=== PATIENT | female | born 1980 | race Caucasian/White ===

== ENCOUNTER 2017-04-04 06:00 | Inpatient (IN) | payer OTHER ==
[2017-04-04] MEDS ORDERED: TERBUTALINE SULFATE 1 MG/ML VIAL IV PRN (07:04)
[2017-04-04] MEDS ORDERED: LR 1,000 ML IV PRN (07:04)
[2017-04-04] MEDS ORDERED: EPSOM SALT 454 GM TP PRN (07:04)
[2017-04-04] MEDS ORDERED: OLIVE OIL 118 ML BTL MISC PRN (07:04)
[2017-04-04] MEDS ORDERED: OXYTOCIN 20 UNIT in LR 1,000 ML IV PRN (07:04)
[2017-04-04] MEDS ORDERED: LIDOCAINE 1% 300 MG/30 ML SDV ONE (07:18)
[2017-04-04] MEDS ORDERED: OXYTOCIN 10 UNIT/ML VIAL ONE ×2 (07:18→12:56)
[2017-04-04] MEDS ORDERED: TERBUTALINE SULFATE 1 MG/ML VIAL ONE (07:18)
[2017-04-04] MEDS ORDERED: OLIVE OIL 118 ML BTL ONE (07:18)
[2017-04-04] MEDS ORDERED: AMMONIA AROMATIC 1 EACH AMP IH ONE (07:18)
[2017-04-04] MEDS ORDERED: MISOPROSTOL 200 MCG TAB ONE (07:19)
[2017-04-04 07:32] LABS: PLATELET COUNT 250 10^3/uL (150-400)
--- NOTE | 2017-04-04 08:43 | PDGENHP ---
History and Physical History and Physical: CARE: [facility] HPI: Patient is a 36yo @40-1 wks that presents to L&D for IOL. She denies any regular contractions, LOF, VB. reports +FM EDC: 04/03/17 which is based on LMP: 06/25/16 which is known and consistent with Ultrasound at 8 weeks. Her is complicated by: AMA Review of Systems: Constitutional: Denies any fever, chills, or fatigue HEENT: denies any visual changes, difficulty swallowing, hearing loss Cardiovascular: Denies any chest pain, palpitations, leg swelling Respiratory: denies any cough, wheezing, or shortness of breathe GI: Denies any nausea, vomiting, diarrhea, constipation : denies any dysuria, urgency, frequency, vaginal bleeding Musculoskeletal: denies any muscle or bone pain Skin: denies any rashes Neuro: denies any headache, seizures, lightheadedness, dizziness, or loss of consciousness Psychiatric: denies any depression, anxiety, or SI/HI thoughts HISTORY: Previous OB history: x2 Past medical history: noncontributory Past surgical history: oral surgery, cholecystectomy Medications: PNV Allergies (list reaction): NKDA LABS: Rh: O+ ABS: Neg Rubella: Immune HbsAg: NR HIV: NR VDRL: NR 1hr: NL GC: Neg Chlamydia: Neg Pap: Normal GBS: Negative PHYSICAL EXAM: Constitutional: WN, A&Ox3 HEENT: normocephalic atraumatic, supple Heart: RRR, no murmur Chest: CTA-B Abdomen: Soft, nontender, gravid SVE: 3/80/-2 Extremities: no edema, negative homans sign Neuro: grossly normal Psych: normal affect assessment: Reassuring FHTs, baseline 135 +accels, no decels, moderate variability Contractions: toco irregular Assessment: 1) 36yo 2) Induction of labor 3) GBS negative 4) Cat 1 FHR tracing Plan: 1) Admit to L&D 2) start pit 3) AROM 4) anticipate
[2017-04-04] MEDS ORDERED: OXYTOCIN 30 UNIT in NS 500 ML IV SCH (12:30)
[2017-04-04] MEDS ORDERED: ACETAMINOPHEN 325 MG TAB PO PRN (14:04)
[2017-04-04] MEDS ORDERED: HYDROCODONE/APAP 5/325 TAB PO PRN (14:04)
[2017-04-04] MEDS ORDERED: SIMETHICONE 80 MG TAB CHEW PO PRN (14:04)
[2017-04-04] MEDS ORDERED: HYDROCORTISONE 0.5% CREAM TP PRN (14:04)
[2017-04-04] MEDS: IBUPROFEN 600 MG TAB PO PRN ×2 (14:05→20:15)
[2017-04-04] MEDS ORDERED: ceFAZolin 2 GM in NS 100 ML IV ONE (20:23)
--- NOTE | 2017-04-04 20:23 | OBDEL ---
Info L&D Analgesia/Anesthesia Type: Local, Nitrous Intrapartum Medications: Generic Name Dose Route Start Last Admin Trade Name Freq PRN Reason Stop Dose Admin Oxytocin 30 unit/ Sodium 503 mls @ 0 mls/hr 04/04/17 12:30 04/04/17 08:10 Chloride IV 10/01/17 12:29 503 mls CONT NARA Administration Per Protocol Ibuprofen 600 mg 04/04/17 07:04 04/04/17 20:15 Motrin PO 10/01/17 07:03 600 mg Q6HRS PRN Administration post , inflammation Discontinued Medications Generic Name Dose Route Start Last Admin Trade Name Freq PRN Reason Stop Dose Admin Oxytocin 20 unit/ Lactated 1,002 mls @ 150 mls/hr 04/04/17 07:04 04/04/17 11: 47 Ringer's IV 1,002 mls PRN PRN Administration Post- bleeding Vaginal Delivery - Labor and Delivery Onset of Contractions Date: 04/04/17 Onset of Contractions Time: 11:09 Rupture of Membranes Date: 04/04/17 Rupture of Membranes Time: 11:09 Dilation Complete Date: 04/04/17 Dilation Complete Time: 13:00 Placenta Delivery Date: 04/04/17 Placenta Delivery Time: 13:38 Total Hours of Labor: 2 Vaginal Sponge Count Correct: Yes Vaginal Needle Count Correct: Yes Data NICOLAS: 04/03/17 Gestational Age: 40 week(s) and 1 day(s) Martínez Delivery Date: 04/04/17 Delivery Time: 13:08 Sex of Infant: Female Score (1 Min): 8 Score (5 Min): 9
[2017-04-04] MEDS: DOCUSATE SODIUM 100 MG CAP PO PRN (22:40)
[2017-04-05] MEDS: IBUPROFEN 600 MG TAB PO PRN ×4 (01:50→20:23)
[2017-04-05] MEDS: DOCUSATE SODIUM 100 MG CAP PO PRN ×2 (08:26→20:23)
--- NOTE | 2017-04-05 12:19 | OBPP ---
Progress Note Assessment/Plan: Assessment: 36 y/o PPD #1 s/p doing well. Plan: [facility] PPC, support. D/c home tomorrow. 04/05/17 12:18 Subjective/ Course: 04/05/17 12:17 Pt is doing well today. She feels well, only having cramping with nursing. She has min lochia, is ambulating and voiding without difficulty. Nursing is going well and baby is doing well. She would like to stay today and go home tomorrow. Objective: 04/04/17 06:40 Patient ABO/Rh O POSITIVE 04/04/17 06:40 Temp Pulse Resp BP Pulse Ox 36.8 C 82 17 111/66 95 04/05/17 09:18 04/05/17 09:18 04/05/17 09:18 04/05/17 09:18 04/05/17 09:18 Uterine Position/Fundal Height: Umbilicus -2 Uterine Tone: Firm Physical Exam - Physical Exam Neck: non-tender, full range of motion, supple Respiratory: chest non-tender, lungs clear, normal breath sounds Cardiac/Chest: regular rate, rhythm Abdomen: normal bowel sounds Extremities: swelling (no), Anuradha's sign (neg)
[2017-04-05 22:51] VITALS: O2SAT 97
[2017-04-06] MEDS: IBUPROFEN 600 MG TAB PO PRN ×2 (02:34→08:49)
[2017-04-06] MEDS: DOCUSATE SODIUM 100 MG CAP PO PRN (08:49)
[2017-04-06 09:59] VITALS: BP 113/75; PULSE 76; RESP 16; TEMP 97
--- NOTE | 2017-04-06 11:24 | OBPP ---
Progress Note Assessment/Plan: Assessment: ppd# 2 s/p breast feeding o positive / rubella immune Plan: routine post care and discharge instructions 04/06/17 11:21 Subjective/ Course: 04/05/17 12:17 Pt is doing well today. She feels well, only having cramping with nursing. She has min lochia, is ambulating and voiding without difficulty. Nursing is going well and baby is doing well. She would like to stay today and go home tomorrow. 04/06/17 11:22 patient is doing great! pain is well controlled. normal lochia. denies headache and changes in vision. ready to go home. breast feeding is going well. ready to go home. Objective: 04/04/17 06:40 Patient ABO/Rh O POSITIVE 04/04/17 06:40 Temp Pulse Resp BP Pulse Ox 36.1 C 76 16 113/75 97 04/06/17 08:00 04/06/17 08:00 04/06/17 08:00 04/06/17 08:00 04/05/17 20:00 Physical Exam - Physical Exam Neck: non-tender, full range of motion, supple Respiratory: chest non-tender, lungs clear, normal breath sounds Cardiac/Chest: normal peripheral pulses, regular rate, rhythm Abdomen: normal bowel sounds, non-tender Extremities: normal range of motion, non-tender, normal inspection, normal capillary refill Skin: normal color, warm/dry Neuro/Psych: no motor/sensory deficits, alert, normal mood/affect, oriented x 3
--- NOTE | 2017-04-06 11:30 | OBGCSDC ---
General Delivery Information - General Info : 3 Para: 3 Abortions: 0 L&D Analgesia/Anesthesia Type: Local, Nitrous Admission Date: 04/04/17 Labs: Patient ABO/Rh O POSITIVE 04/04/17 06:40 Hct 36.3 % (38.0-47.0) L 04/04/17 06:40 - Hospital Course Antepartum: 04/06/17 11:29 initiated care with [facility] in first trimester. uncomplicated . desired iol at 40 weeks. : 04/05/17 12:17 Pt is doing well today. She feels well, only having cramping with nursing. She has min lochia, is ambulating and voiding without difficulty. Nursing is going well and baby is doing well. She would like to stay today and go home tomorrow. 04/06/17 11:22 patient is doing great! pain is well controlled. normal lochia. denies headache and changes in vision. ready to go home. breast feeding is going well. ready to go home. Vaginal - Delivery Provider Delivery Physician/CNM: Angela Leung - Diagnosis Labor: Induced Rupture of Membranes Type: Artificial Amniotic Fluid Color: Clear Data NICOLAS: 04/03/17 Gestational Age: 40 week(s) and 3 day(s) Martínez Delivery Date: 04/04/17 Delivery Time: 13:08 Sex of : Female Score (1 Min): 8 Score (5 Min): 9 Discharge Information - Discharge Information Condition: Good Instruction/Follow Up: Four Weeks (mood check), Six Weeks (post visit)
== END 2017-04-06 12:35 | disposition home or self-care (01) | DRG 775 ==
LOC: FLD 06:12 → FOB 16:55
PROVIDERS: ADMIT Advanced Practice Midwife; ATTEND Obstetrics & Gynecology
PROC: 10E0XZZ Delivery of Products of Conception, External Approach (ICD-10-PCS; principal; 2017-04-04)
PROC: 10907ZC Drainage of Amniotic Fluid, Therapeutic from Products of Conception, Via Natural or Artificial Opening (ICD-10-PCS; principal; 2017-04-04)
DX: O48.0 Post-term pregnancy (principal); Z3A.40 40 weeks gestation of pregnancy; Z37.0 Single live birth
CPT/HCPCS: J0690; J3105